=== PATIENT | female | born 1970 | race Caucasian/White ===

== ENCOUNTER 2016-12-31 13:13 | Emergency (ER) | payer OTHER ==
[~2016-12-31] VITALS: Ht 157.5 cm; Wt 57.0 kg
[~2016-12-31 13:13] MED LIST: LEVE500 PO; MSIR15 PO
[2016-12-31 13:14] VITALS: BP 114/71; PULSE 75; RESP 16; TEMP 98; O2SAT 98
[2016-12-31] MEDS ORDERED: DEPA500T PO (13:40)
[2016-12-31] MEDS ORDERED: HYDR-3535 PO (13:40)
[2016-12-31] MEDS ORDERED: DEPA500T3 PO (13:40)
[2016-12-31] MEDS ORDERED: REST30CA PO (13:43)
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
[2016-12-31] MEDS: ACETAMINOPHEN 500 MG CPLT PO ONE (14:30)
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
[2016-12-31 15:55] VITALS: BP 118/68
[2016-12-31] MEDS ORDERED: ROBA500T PO ×2 (16:12→16:13)
== END 2016-12-31 15:55 | disposition home or self-care (01) ==
LOC: NEPD 13:13
DX: R42 Dizziness and giddiness (principal); M54.2 Cervicalgia; M54.6 Pain in thoracic spine; R55 Syncope and collapse; I10 Essential (primary) hypertension; G47.30 Sleep apnea, unspecified; V89.2XXA Person injured in unspecified motor-vehicle accident, traffic, initial encounter; Z72.0 Tobacco use; Z87.39 Personal history of other diseases of the musculoskeletal system and connective tissue; Z86.69 Personal history of other diseases of the nervous system and sense organs; Z86.59 Personal history of other mental and behavioral disorders; Z85.42 Personal history of malignant neoplasm of other parts of uterus; Z87.09 Personal history of other diseases of the respiratory system
CPT/HCPCS: 70450